=== PATIENT | female | born 1985 | race Caucasian/White ===

== ENCOUNTER 2021-08-24 08:07 | Day surgery (SDC) | payer BC ==
[~2021-08-24 08:07] MED LIST: Albuterol 0.083% 2.5 MG/3 ML Neb Soln NEB PRN; HYDROmorphone 1 MG/ML Syringe IVPUSH PRN; Lactated Ringers 1,000 ML IV SCH; Metoclopramide 10 MG/2 ML SDV IVPUSH PRN; Morphine 4 MG/ML VIAL IVPUSH PRN; Naloxone 0.4 MG/ML SDV IVPUSH PRN; Ondansetron 4 MG/2 ML SDV IVPUSH PRN; fentaNYL 100 MCG/2 ML SDV IVPUSH PRN
[2021-08-24] MEDS ORDERED: fentaNYL 250 MCG/5 ML SDV ONE (08:53)
[2021-08-24] MEDS ORDERED: Propofol 200 MG/20 ML SDV ONE (08:53)
[2021-08-24] MEDS ORDERED: Lidocaine 1% with EPINEPHrine 1:100,000 10 ML MDV ONE (08:54)
[2021-08-24] MEDS ORDERED: Iodine/Potassium Iodide 5% Solution 14 ML Bottle ONE (08:54)
[2021-08-24] MEDS ORDERED: Ferric Subsulfate Topical Soln 8 GM (8 ML) Bottle ONE ×2 (08:54→10:04)
[2021-08-24] MEDS ORDERED: Famotidine 20 MG/2 ML SDV ONE (09:12)
[2021-08-24] MEDS ORDERED: Ondansetron 4 MG/2 ML SDV ONE (09:46)
[2021-08-24] MEDS ORDERED: Dexamethasone 4 MG/ML 5 ML MDV ONE (09:46)
[2021-08-24] MEDS ORDERED: Ketorolac 30 MG/ML SDV ONE (09:46)
[2021-08-24] MEDS ORDERED: Glycopyrrolate 0.2 MG/ML SDV ONE (09:46)
[2021-08-24] MEDS ORDERED: Succinylcholine/Sod PF 100 MG/5 ML SYRINGE IV ONE (09:46)
== END 2021-08-24 10:34 | disposition home or self-care (01) ==
LOC: MW.SDS 08:07
PROVIDERS: ATTEND Obstetrics & Gynecology
DX: D06.9 Carcinoma in situ of cervix, unspecified (principal); Z79.899 Other long term (current) drug therapy; F17.210 Nicotine dependence, cigarettes, uncomplicated
CPT/HCPCS: 57522; 81025; J0330; J1100; J1885; J2405; J2704; J3010; J3490; J7120; 00940; A9270-GY